=== PATIENT | female | born 2000 | race African-American/Black ===

== ENCOUNTER 2021-10-30 21:00 | Emergency (ER) | payer OTHER ==
[2021-10-30 21:28] VITALS: BMI 18.8
[2021-10-30] MEDS ORDERED: ACETAMINOPHEN 325 MG TABLET (FP) PO ONE (21:48)
[2021-10-30] MEDS ORDERED: ACETAMINOPHEN 325 MG TABLET (FP) ONE (21:54)
[2021-10-30 23:24] VITALS: BP 96/49; PULSE 63; TEMP 98.1
== END 2021-10-31 00:05 | disposition home or self-care (01) ==
LOC: JER 21:00
DX: O26.892 Other specified pregnancy related conditions, second trimester (principal); R04.0 Epistaxis; Z3A.21 21 weeks gestation of pregnancy
CPT/HCPCS: 76801-TC; 99283-25